=== PATIENT | male | born 1995 | race Caucasian/White ===

== ENCOUNTER 2019-03-20 00:15 | Emergency (ER) | payer OTHER ==
[~2019-03-20] VITALS: Ht 182.9 cm; Wt 93.0 kg
[2019-03-20] MEDS ORDERED: Augmentin 875-1 EACH PO (01:21)
== END 2019-03-20 01:30 | disposition home or self-care (01) ==
LOC: ER 00:15
DX: S02.5XXA Fracture of tooth (traumatic), initial encounter for closed fracture (principal); S01.511A Laceration without foreign body of lip, initial encounter; Z87.891 Personal history of nicotine dependence; W18.30XA Fall on same level, unspecified, initial encounter
CPT/HCPCS: 12011; 90471; 90714; 99282-25